=== PATIENT | male | born 1970 | race Caucasian/White ===

== ENCOUNTER 2017-06-17 15:36 | Emergency (ER) | payer OTHER ==
[~2017-06-17] VITALS: Ht 185.4 cm; Wt 90.7 kg
[~2017-06-17 15:36] MED LIST: ACETAZOLAMIDE250 MG PO; ANTIVERT25 MG PO; DIAZEPAM5 MG PO
[2017-06-17] MEDS ORDERED: HYDROCHLOROTHIA25 MG PO (16:03)
--- OUTSIDE RECORDS SUMMARY | 2017-06-17 18:03 | XMS ---
Demographics + + + | Address | [address] | | | [place] [address] | + + + | Preferred Language | Unknown | + + + | Marital Status | Unknown | + + + | Presybeterian Affiliation | Unknown | + + + | Race | Unknown | + + + | Ethnic Group | Unknown | + + + Author + + + | Author | [facility] | + + + | Organization | [facility] | + + + | Address | [address] | | | [place] [address] | + + + | Phone | | + + + Care Team Providers + + + + | Care Shoe Repair Supervisor Name | Role | Phone | + + + + Unavailable | Unavailable | + + + + PROBLEMS +---------+ + + +--------+ + + | Type | Condition | ICD9-CM | [id number] | Onset | Condition | SNOMED | | | | Code | Code | Dates | Status | Code | +---------+ + + +--------+ + + | Problem | Essential | | I10 | | Active | [id number] | | | (primary) | | | | | | | | hypertensi | | | | | | | | on | | | | | | +---------+ + + +--------+ + + | Problem | Hyperlipid | | E78.5 | | Active | [id number] | | | emia | | | | | | +---------+ + + +--------+ + + ALLERGIES Unknown Allergies SOCIAL HISTORY No smoking Hx information available PLAN OF CARE VITAL SIGNS MEDICATIONS + + + + + + + +--------+ | Medicati | Instruct | Dosage | Frequenc | Start | End Date | Duration | Status | | on | ions | | y | Date | | | | + + + + + + + +--------+ | Valium 5 | Orally | 1/2 or 1 | | 14 Franki, | | 30 | Active | | MG | tid and | tab(s) | | 2016 | | | | | | taper | prn | | | | | | + + + + + + + +--------+ RESULTS No Results PROCEDURES No Known procedures IMMUNIZATIONS No Known Immunizations"
--- OUTSIDE RECORDS SUMMARY | 2017-06-17 18:03 | XMS ---
Demographics + + + | Address | [address] | | | [place] [address] | + + + | Preferred Language | Unknown | + + + | Marital Status | Unknown | + + + | Zoroastrianism Affiliation | Unknown | + + + | Race | Unknown | + + + | Ethnic Group | Unknown | + + + Author + + + | Author | [facility] | + + + | Organization | [facility] | + + + | Address | [address] | | | [place] [address] | + + + | Phone | | + + + Care Team Providers + + + + | Care Forming Machine Operator Name | Role | Phone | + + + + Unavailable | Unavailable | + + + + PROBLEMS + + + + + + + + | Type | Condition | ICD9-CM | [id number] | Onset | Condition | SNOMED | | | | Code | Code | Dates | Status | Code | + + + + + + + + | Problem | Essential | | I10 | | Active | [id number] | | | (primary) | | | | | | | | hypertensi | | | | | | | | on | | | | | | + + + + + + + + | Problem | Hyperlipid | | E78.5 | | Active | [id number] | | | emia | | | | | | + + + + + + + + | Assessment | Vertigo | | R42 | 10 Apr, | Active | [id number] | | | | | | 2017 | | | + + + + + + + + ALLERGIES + + + + +--------+ | Substance | Reaction | Event Type | Date | Status | + + + + +--------+ | Compazine | Anxiety,Agitati | Drug Allergy | Nov, | Active | | | on,Choking | | | | | | feeling | | | | + + + + +--------+ SOCIAL HISTORY No smoking Hx information available PLAN OF CARE VITAL SIGNS + + + + | Height | 6 ft 1 in in | 2016-12-08 | + + + + | Weight | 203.4 lbs | 2016-12-08 | + + + + | BMI | 26.83 kg/m2 | 2016-12-08 | + + + + | Heart Rate | 79 /min | 2016-12-08 | + + + + | Blood pressure systolic | 139 mm Hg | 2016-12-08 | + + + + | Blood pressure diastolic | 84 mm Hg | 2016-12-08 | + + + + MEDICATIONS + + + + + + + +--------+ | Medicati | Instruct | Dosage | Frequenc | Start | End Date | Duration | Status | | on | ions | | y | Date | | | | + + + + + + + +--------+ | Hydrochl | Orally | 2 tab(s) | 24h | 28 Apr, | | | Active | | orothiaz | once a | | | 2015 | | | | | alanna 25 | day | | | | | | | | MG | | | | | | | | + + + + + + + +--------+ | Valium 5 | Orally | 1/2 or 1 | | 14 Franki, | | 30 | Active | | MG | tid and | tab(s) | | 2015 | | | | | | taper | prn | | | | | | + + + + + + + +--------+ RESULTS No Results PROCEDURES + + + + + | Procedure | Date Ordered | Related Diagnosis | Body Site | + + + + + | Est Level II | December 08, 2016 | | | | Limited | | | | + + + + + IMMUNIZATIONS No Known Immunizations"
[2017-06-17] MEDS ORDERED: NORCO 5-325 TA1 EACH PO (19:18)
[2017-06-17] MEDS ORDERED: ROBAXIN-750750 MG PO (19:18)
== END 2017-06-17 19:31 | disposition home or self-care (01) ==
LOC: ED 15:36
DX: M43.6 Torticollis (principal); Z79.899 Other long term (current) drug therapy
CPT/HCPCS: 80053; 85025; 96361; 96374; 96375; 96376; 99283; J1170; J1885; J7030

== ENCOUNTER 2017-11-02 16:32 | Emergency (ER) | payer OTHER ==
[~2017-11-02] VITALS: Ht 185.4 cm; Wt 90.7 kg
[~2017-11-02 16:32] MED LIST changes: +HYDROCHLOROTHIA25 MG PO; +NORCO 5-325 TA1 EACH PO; +ROBAXIN-750750 MG PO
[2017-11-02] MEDS ORDERED: NAPROSYN500 MG PO (18:21)
--- OUTSIDE RECORDS SUMMARY | 2017-11-02 18:24 | XMS | Clinical Summary ---
Demographics + + + | Address | [address] | | | [place] [address] | + + + | Home Phone | | + + + | Preferred Language | Unknown | + + + | Marital Status | Single | + + + | Buddhism Affiliation | REBEKA CATHOL | + + + | Race | White | + + + | Ethnic Group | Not or | + + + Author + + + | Author | [facility] | + + + | Organization | [facility] | + + + | Address | Unknown | + + + | Phone | Unavailable | + + + Care Team Providers + +------+ + | Care Die Assembler Name | Role | Phone | + +------+ + | None Per Patient, None Per | PP | Unavailable | | Pt | | | + +------+ + Allergies Not on File Current Medications Not on file Active Problems Not on file Social History + +-------+ +--------+------+ | Tobacco Use | Types | Packs/Day | Years | Date | | | | | Used | | + +-------+ +--------+------+ | Never Assessed | | | | | + +-------+ +--------+------+ + + + | Sex Assigned at | Date Recorded | | | | + + + | Not on file | | + + + Plan of Treatment + + + + + | Health Maintenance | Due Date | Last Done | Comments | + + + + + | HIV Screening | | | | | | 4 | | | + + + + + | Tetanus | | | | | | 8 | | | + + + + + | IMM Influenza (#1) | 10/01/201 | | | | | 7 | | | + + + + + Results Not on filefrom Last 3 Months"
--- OUTSIDE RECORDS SUMMARY | 2017-11-02 18:24 | XMS | Clinical Summary ---
Demographics + + + | Address | [address] | | | [place] [address] | + + + | Home Phone | | + + + | Preferred Language | Unknown | + + + | Marital Status | Single | + + + | Shinto Affiliation | REBEKA CATHOL | + + [...] Team Providers + +------+ + | Care Remediation Consultant Name | Role | Phone | + [...]
== END 2017-11-02 19:03 | disposition home or self-care (01) ==
LOC: ED 16:32
DX: R51 Headache (principal); Z79.899 Other long term (current) drug therapy
CPT/HCPCS: 70450; 99284

== ENCOUNTER 2019-01-20 03:23 | Emergency (ER) | payer OTHER ==
[~2019-01-20] VITALS: Ht 185.4 cm; Wt 81.7 kg
[~2019-01-20 03:23] MED LIST changes: +NAPROSYN500 MG PO
[2019-01-20] MEDS ORDERED: PROTONIX40 MG PO (05:27)
--- NOTE | 2019-01-20 15:32 | EKG ---
[facility] [address] [facility] [place] [address] Signed Normal sinus rhythm with sinus arrhythmia Normal ECG No previous ECGs available Confirmed by MARA ZAPATA MD ([id number]) on 01/20/2019 3:32:32 PM Electronically Signed By: MARA ZAPATA MD 01/20/19 1532 PATIENT NAME: CHAVEZ PALOMARES JR Electrocardiogram DATE OF : 66 PHYSICIAN: MARA ZAPATA MD REPORT #: [id number] REPORT IS CONFIDENTIAL AND NOT TO BE RELEASED WITHOUT AUTHORIZATION
== END 2019-01-20 05:44 | disposition home or self-care (01) ==
LOC: ED 03:23
DX: R10.13 Epigastric pain (principal); Z79.899 Other long term (current) drug therapy; Z88.8 Allergy status to other drugs, medicaments and biological substances
CPT/HCPCS: 71046; 74177; 80053; 83690; 83735; 83880; 84484; 85025; 85379; 93005; 93010; 99285-25

== ENCOUNTER 2019-03-01 11:59 | Day surgery (SDC) | payer OTHER ==
[~2019-03-01] VITALS: Ht 185.4 cm; Wt 85.3 kg
[~2019-03-01 11:59] MED LIST changes: +PROTONIX40 MG PO
--- NOTE | 2019-03-01 13:00 | NUR ---
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 IV. WRAPPED AND PATIENT IS WITH HIS GIRLFRIEND THAT WORKS WITH HERE.
--- NOTE | 2019-03-01 18:07 | NUR ---
1730) Patient very agitated, wants to leave. asked for something to help him calm down. 2 mg Versed IV ordered and given. very calm after.
--- NOTE | 2019-03-01 18:37 | NUR ---
03/01/19 1837 Tequila,Sharee 1825 PT ARRIVED TO PACU ON 4L VIA NC, PT NONAROUSABLE TO PAINFUL STIMULI. BP DECREASED AND ENGINEERING DESIGNER AWARE, NO NEW ORDERS. HOB DECREASED AND FLUIDS INCREASED. 1829 BP INCREASED SLIGHTLY, PT REMAINS NONAROUSABLE TO PAINFUL STIMULI. 1036 MD AT BEDSIDE, PT NONAROUSABLE.
--- NOTE | 2019-03-02 16:02 | OR ---
[facility] [address] [place], [place] [address] Signed DATE OF OPERATION: 03/01/2019 SURGEON: Koko Hernandez MD PREOPERATIVE DIAGNOSIS: Persistent severe epigastric pain. No substernal pain, recently improved with Protonix. POSTOPERATIVE DIAGNOSIS: Duodenitis without ulceration, poor flap valve, no evidence of esophagitis. PROCEDURE: Esophagogastroduodenoscopy with biopsy. ANESTHESIA: Intravenous sedation and fentanyl 100 mcg, Versed 8 mg, additionally converted to propofol sedation, Carmela Bello CRNA. INDICATION: This 48-year-old white man, who is a patient of Estelle Palacios and previously Dr. Kai Ng. He is noted to have severe epigastric pain, sharp and intermittent and worse in the morning. He has had weight loss associated with (12 pounds). His pain is deep causing nausea, sweating, and other symptoms. He has had right upper abdominal pain associated with some time to time as well. His bowel function is otherwise normal. He has been treated with Protonix with some beneficial effect. He is uncertain if oral intake improves his symptoms or not. He is admitted at this time to undergo upper endoscopy to better characterize the problem understanding the risks of bleeding, infection, and perforation. FINDINGS: Esophagus was normal. A flap valve was poor. Vocal cords were normal. The stomach generally was normal. CLOtest was negative. He did have duodenitis of the bulbar duodenum. DESCRIPTION OF PROCEDURE: The patient was brought to the endoscopy suite and placed in the lateral decubitus position, given intravenous sedation to the point of slurred speech and nystagmus with full cardiopulmonary monitoring. Hurricaine hypopharyngeal spray had been administered already. A bite block was placed. An Olympus video upper endoscope was passed in the hypopharynx. The patient tolerated Electronically Signed By: KOKO HERNANDEZ MD 03/02/19 1602 PATIENT NAME: CHAVEZ PALOMARES JR OPERATIVE REPORT DATE OF : 66 REPORT #: [id number] PHYSICIAN: KOKO HERNANDEZ MD PCP: KAI NG MD REPORT IS CONFIDENTIAL AND NOT TO BE RELEASED WITHOUT AUTHORIZATION [facility] [address] [place], [place] [address] Signed it very poorly. Additional sedation was given after removal of the scope. Several attempts at additional sedation and so forth were undertaken, but still the patient was completely intolerant of swallowing of the scope in any way. On that basis, Anesthesia was summoned to assist with propofol sedation technique. This was accomplished without problem. The Olympus endoscope was passed in the hypopharynx. The vocal cords were visualized and found to be normal. The scope was advanced to the esophagus without problem, throughout its length it was normal. There are no signs of Young epithelium, stricture, neoplasm, inflammation, or varices. The scope was passed to the stomach, which was insufflated with air. Some saliva was noted. No sign of bile. Rugal folds were normal. Pylorus was normal overall. Antrum was also normal. Scope was passed through the pylorus into the duodenum, where immediately noted was bulbar duodenitis. There was no sign of actual ulcer, however. Scope was passed to the 2nd and 3rd portions, which looked less inflamed. Biopsies were then taken from the duodenal bulb. Scope was withdrawn to the stomach and antral biopsies taken for both EDDIE and pathologic testing. Retroflexed view undertaken, showed a poor flap valve, but no sign of large hiatal hernia proper. The scope was straightened and withdrawn to the distal esophagus. Biopsies taken to the mucosa and in the midesophagus as well. Withdrawal of scope allowed the patient to be taken to recovery room in good condition. CONCLUDING DIAGNOSIS: Dominant finding duodenitis. PLAN: Continue Protonix. Additionally, add Carafate 1 g p.o. q.i.d. He will return to see us in 4-6 weeks. He will call for an appointment tomorrow. MD BRISEYDA Lombardi/ARTEML /[id number] cc: MONIK Ahumada MD Electronically Signed By: KOKO HERNANDEZ MD 03/02/19 1602 PATIENT NAME: JELANICHAVEZ BARRAGAN OPERATIVE REPORT DATE OF : 66 REPORT #: [id number] PHYSICIAN: KOKO HERNANDEZ MD PCP: KAI NG MD REPORT IS CONFIDENTIAL AND NOT TO BE RELEASED WITHOUT AUTHORIZATION [facility] [address] [facility] [place] [address] Signed Copies: ESTELLE PALACIOS PA-C, JAMES C MD ~ Electronically Signed By: KOKO HERNANDEZ MD 03/02/19 1602 PATIENT NAME: JELANICHAVEZ LAUREL OPERATIVE REPORT DATE OF : 66 REPORT #: [id number] PHYSICIAN: KOKO HERNANDEZ MD PCP: KAI NG MD REPORT IS CONFIDENTIAL AND NOT TO BE RELEASED WITHOUT AUTHORIZATION
== END 2019-03-01 19:19 | disposition home or self-care (01) ==
LOC: OPS 11:59 → DS 15:00 → OPS 15:00
PROVIDERS: Surgery
PROC: 0DB78ZX Excision of Stomach, Pylorus, Via Natural or Artificial Opening Endoscopic, Diagnostic (ICD-10-PCS; 2019-03-01)
PROC: 0DB28ZX Excision of Middle Esophagus, Via Natural or Artificial Opening Endoscopic, Diagnostic (ICD-10-PCS; 2019-03-01)
PROC: 0DB38ZX Excision of Lower Esophagus, Via Natural or Artificial Opening Endoscopic, Diagnostic (ICD-10-PCS; 2019-03-01)
PROC: 0DB98ZX Excision of Duodenum, Via Natural or Artificial Opening Endoscopic, Diagnostic (ICD-10-PCS; principal; 2019-03-01 15:00)
DX: K29.50 Unspecified chronic gastritis without bleeding (principal); K29.80 Duodenitis without bleeding; K21.9 Gastro-esophageal reflux disease without esophagitis; Z88.8 Allergy status to other drugs, medicaments and biological substances
CPT/HCPCS: J2250; J2704; J3010; J7120

== ENCOUNTER 2022-08-23 09:37 | Emergency (ER) | payer OTHER ==
[~2022-08-23] VITALS: Ht 185.4 cm; Wt 85.3 kg
[2022-08-23] MEDS ORDERED: ONDANSETRON ODT8 MG PO (12:12)
--- NOTE | 2022-08-23 13:17 | EKG ---
[facility] [address] [facility] [place] [address] Signed Normal sinus rhythm Normal ECG When compared with ECG of 20-JAN-2019 03:28, No significant change was found Confirmed by Stanley Callejas MD () on 08/23/2022 1:17:10 PM Electronically Signed By: STANLEY CALLEJAS MD 08/23/22 1317 PATIENT NAME: CHAVEZ PALOMARES Electrocardiogram DATE OF : 66 PHYSICIAN: STANLEY CALLEJAS MD REPORT #: [id number] REPORT IS CONFIDENTIAL AND NOT TO BE RELEASED WITHOUT AUTHORIZATION
== END 2022-08-23 12:50 | disposition home or self-care (01) ==
LOC: ED 09:37
DX: R53.1 Weakness (principal); B34.9 Viral infection, unspecified; R91.1 Solitary pulmonary nodule; Z20.822 Contact with and (suspected) exposure to COVID-19
CPT/HCPCS: 36415; 71045; 80053; 81003; 84484; 85025; 87502; 93005; 93010; 96361; 96374; 99285-25; C9803; J2405; J7030; U0003